=== PATIENT | male | born 1945 | race Caucasian/White ===

== ENCOUNTER → 2017-05-27 | Day surgery (SDC) | payer MEDICARE ==
--- NOTE | 2017-05-28 15:26 | RADRPT ---
EXAM DATE/TIME: 05/27/2017 16:17 [facility] COMPARISON : No previous studies available for comparison. INDICATIONS : Evaluate for bilateral renal biopsy and cryo ablation. HISTORY OF PRESENT ILLNESS: The patient is referred by Dr. Loyd Bhakta. The patient has undergone multiple MRIs to assess solid shawna al masses bilaterally. The MRI of 05/06/17 demonstrates an interval increase in size of the mass projecting off the posterio r aspect of the left kidney. Compared back to the study of 07/20/14 there is now a second lesion or a b ilobed appearance of the mass. Examination of the right kidney demonstrates interval increase in size of the mass projecting mediall y off the lower pole of the right kidney. We're asked to evaluate the patient for potential biopsy and cryoablation. ASSESSMENT: 1. Due to the change in the appearance/increase in size of the lesion projecting off the posterior as pect of the left kidney I do feel it is reasonable to perform biopsy and cryoablation of this lesion. 2. Compared back to the patient's prior exam the lesion in the lower pole the right kidney has increa sed in size. This lesion would be amenable to biopsy and cryoablation for treatment as well. PLAN: We will proceed with having the patient in for consultation and biopsy/cryoablation of the lesion on the left. Following this, we will treat the lesion on the right side as well. TIME SPENT: 15 minutes. Douglas Urrutia MD on May 28, 2017 at 15:16 Board Certified Radiologist. This report was verified electronically.
== END | disposition home or self-care (01) ==
LOC: HRAD 16:10
PROVIDERS: ATTEND Urology
DX: C64.1 Malignant neoplasm of right kidney, except renal pelvis (principal); C64.2 Malignant neoplasm of left kidney, except renal pelvis

== ENCOUNTER 2017-06-11 13:10 | Day surgery (SDC) | payer MEDICARE, BC ==
[2017-06-11 13:29] VITALS: BP 148/79; PULSE 68; RESP 20; TEMP 97.9; O2SAT 99
[2017-06-11] MEDS ORDERED: VIAG50TA PO (13:39)
[2017-06-11] MEDS ORDERED: LISI-586 PO (13:39)
[2017-06-11] MEDS ORDERED: CETI10 PO (13:39)
[2017-06-11] MEDS ORDERED: FLUO10TA PO (13:39)
[2017-06-11] MEDS ORDERED: AMLO10TA2 PO (13:39)
[2017-06-11] MEDS ORDERED: METF500T PO (13:39)
[2017-06-11] MEDS ORDERED: VITA2000 PO (13:39)
[2017-06-11] MEDS ORDERED: ASPI81CH6 CHEW (13:39)
--- NOTE | 2017-06-11 14:23 | RADRPT ---
EXAM DATE/TIME: 06/11/2017 13:30 [facility] COMPARISON : INDICATIONS : CONSULT FOR RENAL BIOPSY AND CRYOABLATION OBJECTIVE: Temperature: 97.9 Heart Rate: 68 Blood Pressure: 148/79 Respiratory: 18 Oximetry: 99 PNEUMONIA VACCINE: NO HISTORY OF PRESENT ILLNESS: The patient is a 71-year-old who has a long history of bilateral renal masses. On the most recent MRI there is documented increase in size of the lesions. There are at least 2 lesions on the right. Ther e is a solitary lesion on the left. The patient presents for evaluation prior to cryoablation. PAST MEDICAL HISTORY : 1. Hypertension. 2. Diabetes mellitus 2. 3. PVD 4. PSORIATIC ARTHRITIS PAST SURGICAL HISTORY : 1. Cholecystectomy. 2. TONSILLECTOMY 3. LEFT ARM SURGERY SOCIAL HISTORY : No alcohol use. Tobacco;former. ALLERGIES: 1. Latex 2. SIMVASTATIN MEDICATIONS: 1. AMLODIPINE 10 mg q.d. 2. ASPIRIN 81 mg q.d. 3. CETIRIZINE 10 mg q.d. 4. VITAMIN D 2000 units q.d. 5. FLUOXETINE 10 mg q.d. 6. HCTZ/LISINOPRIL 12.5/20 mg b.i.d. 7. METFORMIN 500 mg q.d. PHYSICAL EXAMINATION: The patient is a well-developed well-nourished moderately overweight 71-year-old male in no acute dis tress. IMAGING STUDIES: The patient's MRI dated 05/06/17 was reviewed. ASSESSMENT: The posterior lesion on the left kidney has increased in size and demonstrates contrast enhancement. This lesion is readily amenable to cryoablation for treatment. The lesion in the right kidney along the lower pole has increased in size as well. This lesion is rebecca nable to cryoablation for treatment. PLAN: The patient is scheduled for CT-guided biopsy and cryoablation of the left renal mass. Following arnold very from this will be ordered on the lesions on the right. TIME SPENT: 15 minutes. Douglas Urrutia MD on June 11, 2017 at 14:16 Board Certified Radiologist. This report was verified electronically.
== END 2017-06-11 14:15 | disposition home or self-care (01) ==
LOC: HROP 13:10 → HRIP 13:12 → HROP 14:15
PROVIDERS: ATTEND Urology
DX: N28.89 Other specified disorders of kidney and ureter (principal); I10 Essential (primary) hypertension

== ENCOUNTER 2017-06-12 08:05 | Day surgery (SDC) | payer MEDICARE, BC ==
[~2017-06-12] VITALS: Ht 188 cm; Wt 133.6 kg
[2017-06-12] VITALS (9 sets, daily range): BP systolic 103–142; BP diastolic 59–103; PULSE 66–89; RESP 18–22; TEMP 97.6–97.9; O2SAT 92–95
[~2017-06-12 08:05] MED LIST: AMLO10TA2 PO; ASPI81CH6 CHEW; CETI10 PO; FLUO10TA PO; LISI-586 PO; METF500T PO; VIAG50TA PO; VITA2000 PO
[2017-06-12] MEDS ORDERED: POVIDONE IODINE 5% (ANTISEPSIS KIT) 4 APPLICATIONS EACH NARE PRN (09:15)
[2017-06-12] MEDS ORDERED: METOPROLOL TARTRATE 25 MG TAB PO PRN (09:15)
[2017-06-12] MEDS ORDERED: LACTATED RINGER'S 1000 ML IV PRN (09:15)
[2017-06-12] MEDS ORDERED: CHLORHEXIDINE GLUCONATE 2 % 1 PACK (2 CLOTHS) TOPICAL PRN (09:15)
[2017-06-12] MEDS ORDERED: ceFAZolin 2 GM PREMIX 50 ML IV SCH (09:15)
[2017-06-12] MEDS ORDERED: SODIUM CHLORID 0.9% 500 ML IV PRN (09:15)
[2017-06-12] MEDS ORDERED: SODIUM CHLOR 0.9% 1000 ML INJ 1,000 ML IV SCH (09:15)
[2017-06-12] MEDS ORDERED: SUGAMMADEX SODIUM 200 MG/2 ML VIAL IV PUSH ONE ×2 (09:34)
[2017-06-12 09:36] LABS: BICARBONATE 27.1 MEQ/L (21.0-32.0); POTASSIUM 3.2 MEQ/L (3.5-5.1)
[2017-06-12] MEDS ORDERED: LIDOCAINE 1%/EPINEPHrine 1:100,000 SOLN 20 ML VIAL ONE (10:14)
--- NOTE | 2017-06-12 12:14 | PD.RAD ---
Post Procedure Progress Note Pre Procedure Diagnosis: (1) Left renal mass Post Procedure Diagnosis: (1) Left renal mass Procedure Date: Jun 12, 2017 Supervising Radiologist: Douglas Urrutia Estimated blood loss: None Anesthesia: General Plan of Activity Patient to Unit: PACU Patient Condition: Good Additional Comments: PT post biopsy and cryoablation of the left renal mass. Full dictated report to follow. See PACS Report for procedural detail/treatment Douglas Urrutia MD Jun 12, 2017 12:14
[2017-06-12] MEDS ORDERED: PILL SPLITTER OTHER PRN (12:15)
[2017-06-12] MEDS ORDERED: HYDROmorphone HCL 2 MG TAB PO PRN (12:15)
[2017-06-12] MEDS ORDERED: DO NOT ADM ANY ANTICOAGULANT DRUGS PRN (12:44)
--- NOTE | 2017-06-12 12:56 | EKG ---
Date Performed: 06/12/2017 Time Performed: 09:25:48 PTAGE: 71 years EKG: Sinus rhythm MODERATE INTRAVENTRICULAR CONDUCTION DELAY MINIMAL VOLTAGE CRITERIA FOR LVH, CONSIDER NORMAL VARIANT BORDERLINE ECG NO PREVIOUS TRACING DOCTOR: Houston Rodgers Interpretating Date/Time 06/12/2017 12:54:45
[2017-06-12 14:09] LABS: BASOPHIL % 0.2 % (0.0-2.0); EOSINOPHIL # 0.1 TH/MM3 (0-0.4); EOSINOPHIL % 1.1 % (0.0-4.0); HEMATOCRIT 39.3 % (39.0-51.0); HEMO FLAGS DIFF FINAL; LYMPH % 6.7 % (9.0-44.0); LYMPHOCYTE # 0.7 TH/MM3 (1.0-4.8); MEAN CORPUSCULAR HEMOGLOBIN 30.5 PG (27.0-34.0); MEAN CORPUSCULAR HGB CONC 34.7 % (32.0-36.0); MONO % 2.1 % (0.0-8.0); NEUT % 89.9 % (16.0-70.0); PLATELET COUNT 199 TH/MM3 (150-450); RED BLOOD COUNT 4.47 MIL/MM3 (4.50-5.90); RED CELL DISTRIBUTION WIDTH 13.8 % (11.6-17.2)
--- NOTE | 2017-06-13 13:49 | RADRPT ---
EXAM DATE/TIME: 06/12/2017 10:56 [facility] COMPARISON: No previous studies available for comparison. INDICATIONS : Left renal mass. BIOPSY SITE: Left flank Anesthesia and pain control was provided by the Anesthesia department. Prophylactic antibiotics were administered with appropriate pre-procedure timing. DEVICE(S): 1.) 18 gauge Temno core biopsy needle MEDICAL HISTORY : Hypertension. SURGICAL HISTORY : Cholecystectomy ENCOUNTER: Initial ACUITY: 1 day PAIN SCORE: 0/10 LOCATION: Left flank A total of one core specimen(s) were obtained and sent to the laboratory for pathologic evaluation. PROCEDURE: 1. CT guided renal biopsy. 2. Conscious sedation with continuous EKG and oximetry monitoring. Prior to the procedure informed consent was obtained. Any appropriate prior imaging studies were rev iewed. Using automated exposure control and adjustment of the mA and/or kV according to patient size, radiat ion dose was kept as low as reasonably achievable to obtain optimal diagnostic quality images. DICOM format image data is available electronically for review and comparison. The site was prepped in a sterile fashion. Full sterile technique was used, including cap, mask, hima rile gloves and gown and a large sterile sheet. Hand hygiene and 2% chlorhexidine and/or betadine/al cohol prep was utilized per protocol for cutaneous antisepsis. The skin and subcutaneous tissues wer e infiltrated with local anesthetic solution. With CT guidance the previously identified target was localized. Biopsy was performed using the presc ribed needle as above. Adequate hemostasis was obtained with compression at the puncture site. Follow-up CT scan reveals no hemorrhage. The patient tolerated the procedure well and there were no complications. The patient was returned to the Radiology Outpatient Unit in stable condition. CONCLUSION: Uncomplicated CT guided biopsy of the patient's left renal mass. Douglas Urrutia MD on June 13, 2017 at 13:38 Board Certified Radiologist. This report was verified electronically.
--- NOTE | 2017-06-13 13:56 | RADRPT ---
EXAM DATE/TIME: 06/12/2017 10:56 INDICATIONS : Left renal mass. Anesthesia and pain control was provided by the Anesthesia department. Prophylactic antibiotics were administered with appropriate pre-procedure timing. DEVICE(S): 1.) Cryoablation probe 17mm MEDICAL HISTORY : Hypertension. SURGICAL HISTORY : Cholecystectomy. ENCOUNTER: Initial ACUITY: 1 day PAIN SCORE: 0/10 LOCATION: Left flank PROCEDURE : 1. CT guided cryoablation. Under sterile conditions and using aseptic technique with CT guidance the mass was localized and sati sfactory approach was taken to access the lesion. Using automated exposure control and adjustment of the mA and/or kV according to patient size, radiation dose was kept as low as reasonably achievable to obtain optimal diagnostic quality images. DICOM format image data is available electronically for review and comparison. 2 [email or web address] Cryoprobes were employed using percutaneous technique employing the prescribed probes . A freeze-thaw, freeze-thaw technique was employed and serial imaging demonstrated an ice ball enco mpassing the entire lesion. Post procedure images demonstrate expected postoperative changes without evidence of hematoma. CONCLUSION: Uncomplicated cryoablation as above. Douglas Urrutia MD on June 13, 2017 at 13:53 Board Certified Radiologist. This report was verified electronically.
== END 2017-06-12 18:08 | disposition home or self-care (01) ==
LOC: HRAD 08:05 → HRIP 08:06 → HRAD 18:08
PROVIDERS: ATTEND Urology
DX: C64.2 Malignant neoplasm of left kidney, except renal pelvis (principal); C64.1 Malignant neoplasm of right kidney, except renal pelvis; I10 Essential (primary) hypertension
CPT/HCPCS: 00862; 50200; 50593; 77012; 77013; 80048; 85025; 88305; 93005; C2618; J0690; J7030

== ENCOUNTER 2017-06-19 13:32 | Day surgery (SDC) | payer MEDICARE, BC ==
[2017-06-19 13:50] VITALS: BP 151/92; PULSE 84; RESP 18; TEMP 97.8; O2SAT 98
== END 2017-06-19 14:00 | disposition home or self-care (01) ==
LOC: HROP 13:32 → HRIP 13:33 → HROP 14:00
PROVIDERS: ATTEND Radiology Body Imaging
DX: N28.89 Other specified disorders of kidney and ureter (principal)

== ENCOUNTER 2017-07-18 09:12 | Day surgery (SDC) | payer MEDICARE, BC ==
[~2017-07-18] VITALS: Ht 185.4 cm; Wt 134.5 kg
[2017-07-18 09:26] VITALS: BP 164/99; PULSE 73; RESP 20; TEMP 97.4; O2SAT 97
[2017-07-18] MEDS ORDERED: CHLORHEXIDINE GLUCONATE 2 % 1 PACK (2 CLOTHS) TOPICAL PRN (09:45)
[2017-07-18] MEDS ORDERED: METOPROLOL TARTRATE 25 MG TAB PO PRN (09:45)
[2017-07-18] MEDS ORDERED: INSULIN HUMAN REGULAR 1,000 UNITS/10 ML VIAL SQ PRN (09:45)
[2017-07-18] MEDS ORDERED: SODIUM CHLORID 0.9% 500 ML IV PRN (09:45)
[2017-07-18] MEDS ORDERED: POVIDONE IODINE 5% (ANTISEPSIS KIT) 4 APPLICATIONS EACH NARE PRN (09:45)
[2017-07-18] MEDS ORDERED: LACTATED RINGER'S 1000 ML IV PRN (09:45)
[2017-07-18 10:00] LABS: AUTOMATED NEUTROPHIL # 5.1 TH/MM3 (1.8-7.7); BASOPHIL % 0.3 % (0.0-2.0); EOSINOPHIL # 0.3 TH/MM3 (0-0.4); EOSINOPHIL % 4.5 % (0.0-4.0); HEMATOCRIT 39.8 % (39.0-51.0); HEMOGLOBIN 14.4 GM/DL (13.0-17.0); LYMPH % 18.9 % (9.0-44.0); LYMPHOCYTE # 1.4 TH/MM3 (1.0-4.8); MEAN CELL VOLUME 86.5 FL (80.0-100.0); MEAN CORPUSCULAR HEMOGLOBIN 31.3 PG (27.0-34.0); MEAN PLATELET VOLUME 9.1 FL (7.0-11.0); MONO % 8.9 % (0.0-8.0); MONOCYTE # 0.7 TH/MM3 (0-0.9); NEUT % 67.4 % (16.0-70.0); PLATELET COUNT 210 TH/MM3 (150-450); RED CELL DISTRIBUTION WIDTH 13.8 % (11.6-17.2); WHITE BLOOD COUNT 7.6 TH/MM3 (4.0-11.0)
[2017-07-18 10:06] LABS: MEAN CORPUSCULAR HGB CONC 36.1 % (32.0-36.0)
[2017-07-18 10:09] LABS: INTERNATIONAL NORMALIZED RATIO 0.9 RATIO; PROTHROMBIN TIME - PATIENT 9.6 SEC (9.8-11.6)
[2017-07-18 10:27] LABS: BICARBONATE 28.5 MEQ/L (21.0-32.0); CALCIUM 8.8 MG/DL (8.5-10.1); CREATININE 1.16 MG/DL (0.60-1.30)
[2017-07-18] MEDS ORDERED: LIDOCAINE HCL 1% 20 ML VIAL ONE (11:13)
[2017-07-18] MEDS ORDERED: ceFAZolin 2 GM PREMIX 50 ML ONE (11:20)
--- NOTE | 2017-07-18 12:59 | PD.RAD ---
Post Procedure Progress Note Pre Procedure Diagnosis: (1) Right kidney mass Post Procedure Diagnosis: (1) Right kidney mass Procedure Date: Jul 18, 2017 Supervising Radiologist: Douglas Urrutia Estimated blood loss: 2cc Anesthesia: General, Local Plan of Activity Patient to Unit: PACU Patient Condition: Good Additional Comments: Right lower/mid pole renal mass biopsied and ablated without difficulty. Full dictated report to follow in PACS See PACS Report for procedural detail/treatment Douglas Urrutia MD Jul 18, 2017 12:59
[2017-07-18] MEDS ORDERED: DO NOT ADM ANY ANTICOAGULANT DRUGS PRN (13:45)
[2017-07-18 14:01] LABS: AUTOMATED NEUTROPHIL # 4.3 TH/MM3 (1.8-7.7); BASOPHIL % 0.2 % (0.0-2.0); EOSINOPHIL # 0.2 TH/MM3 (0-0.4); EOSINOPHIL % 3.9 % (0.0-4.0); HEMATOCRIT 37.5 % (39.0-51.0); HEMOGLOBIN 12.8 GM/DL (13.0-17.0); LYMPH % 16.2 % (9.0-44.0); MEAN CELL VOLUME 87.6 FL (80.0-100.0); MEAN CORPUSCULAR HEMOGLOBIN 29.8 PG (27.0-34.0); MEAN PLATELET VOLUME 9.2 FL (7.0-11.0); MONOCYTE # 0.6 TH/MM3 (0-0.9); NEUT % 69.7 % (16.0-70.0); PLATELET COUNT 168 TH/MM3 (150-450); RED BLOOD COUNT 4.28 MIL/MM3 (4.50-5.90); RED CELL DISTRIBUTION WIDTH 13.9 % (11.6-17.2); WHITE BLOOD COUNT 6.1 TH/MM3 (4.0-11.0)
[2017-07-18 14:25] VITALS: BP 119/65; PULSE 68; RESP 20; TEMP 97.7; O2SAT 94
[2017-07-18 15:00] VITALS: BP 119/70; PULSE 57; RESP 20; O2SAT 93
[2017-07-18 15:30] VITALS: BP 117/62; PULSE 55; RESP 20; O2SAT 93
--- NOTE | 2017-07-18 15:46 | RADRPT ---
EXAM DATE/TIME: 07/18/2017 11:50 [facility] COMPARISON: CT NEEDLE BIOPSY RENAL, LEFT, June 12, 2017, 10:56. INDICATIONS : Right renal mass. BIOPSY SITE: Right mid-back. Anesthesia and pain control was provided by the Anesthesia department. DEVICE(S): 1.) 18 gauge Temno core biopsy needle MEDICAL HISTORY : Hypertension. Carcinoma, not otherwise specified. SURGICAL HISTORY : Cholecystectomy Left renal cryoablation. ENCOUNTER: Initial ACUITY: 1 day PAIN SCORE: 0/10 LOCATION: Right back A total of one core specimen(s) were obtained and sent to the laboratory for pathologic evaluation. PROCEDURE: 1. CT guided renal biopsy. Prior to the procedure informed consent was obtained. Any appropriate prior imaging studies were rev iewed. Using automated exposure control and adjustment of the mA and/or kV according to patient size, radiat ion dose was kept as low as reasonably achievable to obtain optimal diagnostic quality images. DICOM format image data is available electronically for review and comparison. The site was prepped in a sterile fashion. Full sterile technique was used, including cap, mask, hima rile gloves and gown and a large sterile sheet. Hand hygiene and 2% chlorhexidine and/or betadine/al cohol prep was utilized per protocol for cutaneous antisepsis. The skin and subcutaneous tissues wer e infiltrated with local anesthetic solution. With CT guidance the previously identified target was localized. Biopsy was performed using the presc ribed needle as above. Adequate hemostasis was obtained with compression at the puncture site. Follow-up CT scan reveals no hemorrhage. The patient tolerated the procedure well and there were no complications. The patient was returned to the Radiology Outpatient Unit in stable condition. CONCLUSION: Uncomplicated CT guided biopsy. Douglas Urrutia MD on July 18, 2017 at 15:44 Board Certified Radiologist. This report was verified electronically.
--- NOTE | 2017-07-18 15:48 | RADRPT ---
EXAM DATE/TIME: 07/18/2017 11:50 INDICATIONS : Right renal mass. Anesthesia and pain control was provided by the Anesthesia department. DEVICE(S): 1.) PERC cryoablation probe MEDICAL HISTORY : Hypertension. Carcinoma, hepatocellular. SURGICAL HISTORY : Cholecystectomy. Left renal cryoablation. ENCOUNTER: Initial ACUITY: 1 day PAIN SCORE: 0/10 LOCATION: Right mid-back PROCEDURE : 1. CT guided cryoablation. Clinical history: The patient is a 72-year-old with multiple renal masses bilaterally. Previous ablation of the left ma ss was performed. 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 The patient had a 2 cm lesion in the medial aspect of the right kidney which appear to be enlarging by MRI as well. This was the targ et lesion on today's exam. Under sterile conditions and using aseptic technique with CT guidance the mass was localized and sati sfactory approach was taken to access the lesion. Using automated exposure control and adjustment of the mA and/or kV according to patient size, radiation dose was kept as low as reasonably achievable to obtain optimal diagnostic quality images. DICOM format image data is available electronically for review and comparison. A [employer] Cryoprobe was advanced directly into the lesion under direct CT guidance. A freeze-t haw, freeze-thaw technique was employed and serial imaging demonstrated an ice ball encompassing the entire lesion. Post procedure images demonstrate expected postoperative changes without evidence of hematoma. CONCLUSION: Uncomplicated cryoablation of the mass along the medial aspect of the right kidney as above. Biopsy w as performed immediately prior to cryoablation. Douglas Urrutia MD on July 18, 2017 at 15:44 Board Certified Radiologist. This report was verified electronically.
[2017-07-18 16:00] VITALS: BP 131/86; PULSE 86; RESP 20; O2SAT 96
[2017-07-18 17:00] VITALS: BP 138/86; PULSE 76; RESP 18; O2SAT 97
== END 2017-07-18 18:00 | disposition home or self-care (01) ==
LOC: HROP 09:12 → HRIP 09:12 → HROP 18:00
PROVIDERS: ATTEND Urology
DX: C64.1 Malignant neoplasm of right kidney, except renal pelvis (principal); C64.2 Malignant neoplasm of left kidney, except renal pelvis; I10 Essential (primary) hypertension; E11.9 Type 2 diabetes mellitus without complications; Z79.84 Long term (current) use of oral hypoglycemic drugs
CPT/HCPCS: 00860; 50200; 50593; 77012; 77013; 80048; 85025; 85610; 85730; 88305; C2618; J0690; J3010; 88307

== ENCOUNTER 2017-07-22 12:00 | Day surgery (SDC) | payer MEDICARE, BC | END 2017-07-22 13:50 | disposition home or self-care (01) | LOC: HROP 12:00 → HRIP 12:00 → HROP 13:50 | PROVIDERS: ATTEND Radiology Body Imaging | DX: R33.9 Retention of urine, unspecified (principal) ==